=== PATIENT | female | born 1995 | race American Indian/Alaskan Native ===

== ENCOUNTER 2021-12-04 02:23 | Emergency (ER) | payer OTHER ==
--- NOTE | 2021-12-04 09:11 | XRay Report ---
CHEST 2 VIEWS INDICATION / CLINICAL INFORMATION: sob. COMPARISON: None available. FINDINGS: SUPPORT DEVICES: None. HEART / MEDIASTINUM: No significant abnormality. LUNGS / PLEURA: No significant pulmonary or pleural abnormality. No pneumothorax. ADDITIONAL FINDINGS: No significant additional findings. IMPRESSION: 1. No acute findings. Signer Name: Arben Broussard Jr, MD Signed: 12/04/2021 9:07 AM Workstation Name: [id number]
--- NOTE | 2021-12-04 10:03 | Emergency Department Report ---
Minor Respiratory - HPI Chief Complaint: Upper Respiratory Infection Stated Complaint: COVID +, NUMBNESS, CAN'T BREATH Time Seen by Provider: 12/04/21 08:13 Duration: 3 Days Pain Location: Chest Severity: mild Minor Respiratory: Yes Able to Tolerate Fluids, Yes Cough, Yes Sick Contacts, No Rhinorrhea, No Sore Throat, No Ear Pain, No Hemoptysis, No Chest Pain, No Shortn ess of Breath, No Fever Other History: Patient is a 25-year-old female that comes to the emergency room because she tested positive for COVID on Tuesday. Her mother is concerned because of her lingering symptoms. She has a cough. She reports subjective fever. She has no tachycardia, hypotension or hypoxia. She is in no acute distress with no increased work of breathing. She was seen by her PCP and given symptom control measures such as Tessalon Perles and Motrin. She comes to the ER to make sure she does not need antibiotics. ED Review of Systems ROS: Stated complaint: COVID +, NUMBNESS, CAN'T BREATH Other details as noted in HPI Comment: All other systems reviewed and negative ED Past Medical Hx - Past Medical History Previous Medical History?: Yes Hx Asthma: Yes - Surgical History Past Surgical History?: No - Family History Family history: no significant - Social History Smoking Status: Never Smoker Substance Use Type: None - Medications Home Medications: Home Medications Medication Instructions Recorded Confirmed Last Taken Type Acetaminophen/Codeine [Tylenol #3] 1 tab PO Q6H PRN #15 tab 04/25/15 Unknown Rx Sulfamethoxazole/Trimethoprim 1 each PO BID #14 tablet 04/25/15 Unknown Rx [Bactrim DS TAB] Minor Respiratory Exam - Exam General: Vital signs noted. No distress. Alert and acting appropriately. HEENT: Yes Moist Mucous Membranes, No Pharyngeal Erythema, No Pharyngeal Exudates, No Rhinorrhea, No Conjuctival Injection, No Frontal Tenderness, No Maxillary Tenderness Ear: Neither TM Bulge, Neither TM Erythema, Neither EAC Pain, Neither EAC Discharge Neck: Yes Supple, No Adenopathy Lungs: Yes Good Air Exchange, No Wheezes, No Ronchi, No Stridor, No Cough, No Labored Respirations, No Retractions, No Use of Accessory Muscles, No Other Abnormal Lung Sounds Heart: Yes Regular, No Murmur Abdomen: Yes Normal Bowel Sounds, No Tenderness, No Peritoneal Signs Skin: No Rash, No Edema Neurologic: Alert and oriented, no deficits. Musculoskeletal: Unremarkable. ED Course Vital Signs 12/04/21 02:28 Temperature 99.0 F Pulse Rate 95 H Respiratory 18 Rate Blood Pressure 146/82 O2 Sat by Pulse 100 Oximetry ED Medical Decision Making - Radiology Data Radiology results: report reviewed, image reviewed No acute process - Medical Decision Making Vital Signs 12/04/21 12/04/21 12/04/21 02:28 10:13 10:22 Temperature 99.0 F 98.9 F Pulse Rate 95 H 72 Respiratory 18 Rate Blood Pressure 146/82 Blood Pressure 114/70 [Left] O2 Sat by Pulse 100 100 Oximetry X-ray noted without infiltrate or consolidation. Patient being discharged home with discharge plan of care including diet, activity, medications and follow-up. She verbalizes understanding of plan of care. Mother also verbalizes understanding of plan of care. - Differential Diagnosis Rule out COVID-pneumonia Critical care attestation.: If time is entered above; I have spent that time in minutes in the direct care of this critically ill patient, excluding procedure time. ED Disposition Clinical Impression: COVID Disposition: 01 HOME / SELF CARE / HOMELESS Is pt being admited?: No Does the pt Need Aspirin: No Condition: Stable Instructions: COVID-19 Frequently Asked Questions Additional Instructions: Continue your [id number] sign and symptom management. Motrin or Tylenol for pain or fever protect your family from spread by isolating yourself. Stay well-hydrated with water. Follow-up with PCP next week to make sure you are feeling better. Referrals: FLORY MEEKS MD [Staff Physician] - 3-5 Days Forms: Accompanied Note, Work/School Release Form(ED) Time of Disposition: 10:04
[2021-12-04 10:14] VITALS: BP 114/70
== END 2021-12-04 10:23 | disposition home or self-care (01) ==
LOC: ED 02:23
DX: U07.1 COVID-19 (principal); J45.909 Unspecified asthma, uncomplicated
CPT/HCPCS: 71046; 99283